=== PATIENT | female | born 2000 | race Caucasian/White ===

== ENCOUNTER 2020-06-18 10:52 | Emergency (ER) | payer OTHER ==
[~2020-06-18] VITALS: Ht 162.6 cm; Wt 77.2 kg
--- NOTE | 2020-06-18 11:14 | PHYS DOC ---
General Adult EDM: Chief Complaint: UPPER EXTREMITY PAIN HPI: HPI: 19-year-old [id number] female who presents for evaluation of ongoing pain of the left wrist in the setting of distal left radius fracture status post mechanical fall and FOOSH injury yesterday. Was seen at urgent care yesterday, placed in a splint. Did not undergo hematoma block or reduction. She was seen at [place] prior to arrival due to ongoing pain, now with some tingling of the fingertips and swelling of all digits. Review of Systems: Review of Systems: Gen: No fever, chills. Neuro: No DE LEON, dizziness, weakness. Reports left fingertip tingling. MSK: Reports left wrist pain swelling. Skin: No acute rash or lesion. Remainder of systems reviewed and negative unless otherwise specified. Allergies: Allergies: Allergies Coded Allergies Type Severity Reaction Last Updated Verified No Known Drug Allergies 06/18/20 No Physical Exam: PE: Gen: NAD. Well nourished. Head: NC/AT. Eyes: No scleral icterus. No conjunctival injection. ENT: MMM. Posterior OP clear. Neck: Supple. CV: RRR. Peripheral pulses intact. Resp: CTAB. MSK: No peripheral cyanosis. Swelling of all digits of the left hand. Nonfocal tenderness of the left wrist with passive active range of motion of the left digits. Previously applied left sugar tong splint in place. Neuro: A&Ox3. Strength & sensation grossly intact throughout. Skin. Warm. Dry. Psych: Appropriate mood & affect. EKG: EKG: [] Radiology/Procedures: Radiology/Procedures: [] Heart Score: C/O Chest Pain: N/A Risk Factors: Risk Factors: DM, Current or recent (<one month) smoker, HTN, HLP, family history of CAD, obesity. Risk Scores: Score 0 - 3: 2.5% MACE over next 6 weeks - Discharge Home Score 4 - 6: 20.3% MACE over next 6 weeks - Admit for Clinical Observation Score 7 - 10: 72.7% MACE over next 6 weeks - Early Invasive Strategies Course & Med Decision Making: Course & Med Decision Making Pertinent Labs and Imaging studies reviewed. (See chart for details) In summary, lasts 19-year-old bejmv-prra-crwdruyu female who presents with ongoing left wrist pain and finger swelling in the setting of distal left radial fracture identified yesterday urgent care. The patient's splint appears to be on quite tight. X-ray here shows nondisplaced distal left radial fracture. The patient's splint was removed and redone. Distal capillary refill present. No findings c/w compartment syndrome. We discharged home with outpatient orthopedic follow-up. Return precautions given. Tez Disclaimer: Dragliliana Disclaimer: This electronic medical record was generated, in whole or in part, using a voice recognition dictation system. Departure Departure: Impression: Primary Impression: Distal radius fracture, left Disposition: 01 DC HOME SELF CARE/HOMELESS Condition: STABLE Referrals: BESS VALENCIA DO (PCP) LARRY MCCULLOUGH II, MD Patient Instructions: Wrist Fracture, [id number] Additional Instructions: Follow up with the orthopedic surgeon. Scripts Hydrocodone Bit/Acetaminophen (HYDROCODONE-APAP 5-325 ) 1 Each Tablet 1 TAB PO PRN Q6HRS PRN for PAIN, #15 TAB 0 Refills Prov: ADELINA NOVA DO 06/18/20 ADELINA NOVA DO Jun 18, 2020 11:14
[2020-06-18] MEDS ORDERED: HYDROcodone/APAP 5/325MG 1 TAB TABLET PO ONE (11:15)
[2020-06-18] MEDS ORDERED: HYDR-2155 PO (12:01)
[2020-06-18 12:09] VITALS: BP 132/73
--- NOTE | 2020-06-18 12:14 | RAD ---
Left wrist 3 views INDICATION: Distal radius fracture with worsening pain COMPARISON: None currently available. FINDINGS: Closed reduction and casting of the distal radial intra-articular fracture of the metaphysis is seen with near anatomic alignment. No additional fractures are seen with artifact of casting material pres ent. The soft tissues are unremarkable allowing for mild soft tissue swelling. IMPRESSION: Intra-articular fracture of the distal radius with near-anatomic alignment. No specific cause for worsening wrist pain is seen. Correlation with prior radiographs could be helpf ul. Electronically signed by: Gail Truong MD (06/18/2020 12:11 PM) [id number]
== END 2020-06-18 12:10 | disposition home or self-care (01) ==
LOC: ER 10:52
DX: S52.502A Unspecified fracture of the lower end of left radius, initial encounter for closed fracture (principal); W18.39XA Other fall on same level, initial encounter; Y93.89 Activity, other specified; Y92.89 Other specified places as the place of occurrence of the external cause; Y99.8 Other external cause status
CPT/HCPCS: 73110; 99283

== ENCOUNTER 2020-06-25 11:16 | Emergency (ER) | payer OTHER ==
[~2020-06-25] VITALS: Ht 162.6 cm; Wt 77.2 kg
[~2020-06-25 11:16] MED LIST: HYDR-2155 PO
[2020-06-25 11:31] VITALS: BP 151/66
[2020-06-25] MEDS ORDERED: IBUPROFEN 600 MG TABLET. PO ONE (12:00)
[2020-06-25] MEDS ORDERED: DEXAMETHASONE SOD PHOS 10 MG/ML VIAL. IM ONE (12:00)
[2020-06-25] MEDS ORDERED: AMOX1TAB61 PO (12:14)
--- NOTE | 2020-06-25 12:15 | PHYS DOC ---
Past History Past Medical History: No Pertinent History Past Surgical History: No Surgical History Alcohol Use: None Adult General Chief Complaint Chief Complaint: SORE THROAT HPI HPI Patient is a 19-year-old female presents emergency department complaining of sore throat that started last night. Patient states that she woke up at 5 AM and noticed a fever of 100.0 oral temp. Patient states she did not take any medications for her sore throat or her fever however currently takes 5/325 hydrocodone/acetaminophen for a left wrist fracture she suffered last week, currently is wearing a OCL splint volar type to the left wrist, has an appointment to see Dr. Ferrer at the [facility] this coming . Patient states she has recurrent strep throat infections, has them several times a year, states she is usually treated with steroids and penicillin by the [facility] she was at in [facility], states she recently moved here to this area [facility] this past month. Patient denies ear pain, nasal congestion, chest congestion, cough, shortness of breath, or chest pain. Patient denies nausea, vomiting, diarrhea or abdominal pains. Patient states her last menstrual cycle was 3 weeks ago with normal duration of flow. Patient denies any surgical history, denies any medical history in which she takes prescription medications for. She denies any allergies to medications. Patient complains of 8/10 pain of her throat. Review of Systems Review of Systems 14 body systems of review of systems have been reviewed. See HPI for pertinent positives and negative responses, otherwise all other systems are negative, nonpertinent or noncontributory. Current Medications Current Medications Current Medications Medications (Trade) Dose Ordered Sig/Galilea Start Time Stop Time Status Last Admin Dose Admin Dexamethasone Sodium Phosphate (Decadron) 10 mg 1X ONCE 06/25/20 12:00 06/25/20 12:01 UNV Ibuprofen (Motrin) 600 mg 1X ONCE 06/25/20 12:00 06/25/20 12:01 UNV Allergies Allergies Allergies Coded Allergies Type Severity Reaction Last Updated Verified No Known Drug Allergies 06/18/20 No Physical Exam Physical Exam Constitutional: Well developed, well nourished, no acute distress, non-toxic appearance. 19-year-old female in no apparent distress, speaks in normal voice tones. HENT: Normocephalic, atraumatic, bilateral external ears normal, oropharynx moist, no oral exudates, nose normal. Bilateral tonsillar swelling with edema with cobblestoning, no tonsillar exudates, no postnasal drip appreciated, no laryngeal swelling, airway patent, no sores in the oral cavity, bilateral submental lymphadenopathy, no other lymphadenopathy of the head or neck appreciated, bilateral TMs within normal limits, bilateral external auditory c anals within normal limits. No drooling, no trismus appreciated. Eyes: PERRLA, EOMI, conjunctiva normal, no discharge. Neck: Normal range of motion, no tenderness, supple, no stridor. No midline spinal tenderness, no meningismus signs, no nuchal rigidity appreciated. Cardiovascular:Heart rate regular rhythm, no murmur Lungs & Thorax: Bilateral breath sounds clear to auscultation Abdomen: Bowel sounds normal, soft, no tenderness, no masses, no pulsatile masses. Skin: Warm, dry, no erythema, no rash. Back: No tenderness, no CVA tenderness. Extremities: No tenderness, no cyanosis, no clubbing, ROM intact, no edema. Except for left upper extremity, patient has volar type OCL splint placed. Both OCL splint and [place] wrapping sustained and dirty, distal cap refill less than 2 seconds, patient moves fingers well, no swelling appreciated. Neurologic: Alert and oriented X 3, normal motor function, normal sensory function, no focal deficits noted. Psychologic: Affect normal, judgement normal, mood normal. Current Patient Data Vital Signs Vital Signs Date Time Temp Pulse Resp B/P (MAP) Pulse Ox O2 Delivery O2 Flow Rate FiO2 06/25/20 11:31 98.9 89 16 151/66 (94) 100 Room Air Lab Results Laboratory Tests Test 06/25/20 11:38 Group A Streptococcus Rapid Negative (NEGATIVE) EKG EKG [] Radiology/Procedures Radiology/Procedures [] Heart Score C/O Chest Pain: No Risk Factors: Risk Factors: DM, Current or recent (<one month) smoker, HTN, HLP, family history of CAD, obesity. Risk Scores: Risk Factors: DM, Current or recent (<one month) smoker, HTN, HLP, family history of CAD, obesity. Course & Med Decision Making Course & Med Decision Making Pertinent Labs and Imaging studies reviewed. (See chart for details) 19-year-old female, vital signs reviewed, presents emergency department concerning a sore throat. Physical examination consistent with strep pharyngitis. A strep culture was obtained by ED nursing staff. Patient was given 600 mg ibuprofen suspension for pain, 10 mg IM Decadron. Pending rapid strep A results. Related to patient's left upper extremity volar OCL splint and poor condition, will replace splint in the ED today. Patient has an appointment in 2 days with orthopedic specialty. Rapid strep A results negative. Discussed with patient will treat prophylactically with Augmentin. Discussed with patient to keep splint clean and dry, keep appointment with orthopedic specialty in 2 days, follow-up with [facility] primary care physician for reevaluation of sore throat later this week. Left wrist volar OCL splint replaced by ED nursing staff, reevaluation of splint show satisfactory placement, patient remains neurovascular intact after splint placement. Patient gave verbal understanding of discharge home instructions, antibiotic use, continue use of hydrocodone for her wrist pain, follow-up with orthopedic specialty in 2 days, reviewed splint care instructions, follow-up with primary care later this week. Patient had no further questions or concerns and was discharged home without incident. Dragon Disclaimer Dragon Disclaimer This electronic medical record was generated, in whole or in part, using a voice recognition dictation system. Departure Departure: Impression: Primary Impression: Pharyngitis, acute Additional Impression: Left wrist fracture Disposition: 01 DC HOME SELF CARE/HOMELESS Condition: GOOD Referrals: BESS VALENCIA DO (PCP) Patient Instructions: Cast or Splint Care, Elastic Bandage and RICE, Strep Throat Additional Instructions: You are seen today in the emergency department for a sore throat, I am treating you with antibiotics for pharyngitis, we have replaced your splint on your left wrist, please review splint care, please keep your appointment with your orthopedic physician this coming , please follow-up with the [facility] primary care doctor later this week for reevaluation of your sore throat. Please return to the emergency department for worsening symptoms or other concerns. I recommend using children's ibuprofen liquid medication for your sore throat over the next few days. EMERGENCY DEPARTMENT GENERAL DISCHARGE INSTRUCTIONS Thank you for coming to [facility] (ED) today and trusting us with you care. We trust that you had a positivie experience in our Emergency Department. If you wish to speak to the department management, you may call the director at [phone]. YOUR FOLLOW UP INSTRUCTIONS ARE FOLLOWS: 1. Do you have a private Doctor? If you do not have a private doctor, please ask for a resource list of physicians or clinics that may be able to assist you with follow up care. 2. The Emergency Physician has interpreted your x-rays. The X-Ray specialist will also review them. If there is a change in the findings, you will be notified in 48 hours when at all possible. 3. A lab test or culture has been done, your results will be reviewed and you will be notified if you need a change in treatment. ADDITIONAL INSTRUCTIONS AND INFORMATION: 1. Your care today has been supervised by a physician who is specially trained in emergency care. Many problems require more than one evaluation for a complete diagnosis and treatment. We recommend that you schedule your follow up appointment as recommended to ensure complete treatment of you illness or injury. If you are unable to obtain follow up care and continue to have a problem, or if your condition worsens, we recommend that you return to the ED. 2. We are not able to safely determine your condition over the phone nor are we able to give sound medical advice over the phone. For these safety reasons, if you call for medical advice we will ask you to come to the ED for further evaluation. 3. If you have any questions regarding these discharge instructions please call the ED at [phone]. SAFETY INFORMATION: In the interest of safety, wellness, and injury prevention; we encourage you to wear your sealbelt, if you smoke; quite smoking, and we encourage family to use a protective helmet for bicycling and other sporting events that present an increased risk for head injury. IF YOUR SYMPTOMS WORSEN OR NEW SYMPTOMS DEVELOP, OR YOU HAVE CONCERNS ABOUT YOUR CONDITION; OR IF YOUR CONDITION WORSENS WHILE YOU ARE WAITING FOR YOUR FOLLOW UP APPOINTM ENT; EITHER CONTACT YOUR PRIMARY CARE DOCTOR, THE PHYSICIAN WHOSE NAME AND NUMBER YOU WERE GIVEN, OR RETURN TO THE ED IMMEDIATELY. Scripts Amoxicillin/Potassium Clav (AUGMENTIN 875-125 TABLET) 1 Each Tablet 1 TAB PO BID for PHARYNGITIS for 10 Days, #20 TAB 0 Refills Prov: PADMA RAZA APRN 06/25/20 Problem Qualifiers Primary Impression: Pharyngitis, acute Pharyngitis/tonsillitis etiology: other specified organisms Qualified Codes: J02.8 - Acute pharyngitis due to other specified organisms Additional Impression: Left wrist fracture Encounter type: subsequent encounter Fracture type: closed Fracture healing: with routine healing Qualified Codes: S62.102D - Fracture of unspecified carpal bone, left wrist, subsequent encounter for fracture with routine healing PADMA RAZA APRN Jun 25, 2020 12:15
== END 2020-06-25 12:36 | disposition home or self-care (01) ==
LOC: ER 11:16
DX: S62.102A Fracture of unspecified carpal bone, left wrist, initial encounter for closed fracture (principal); J02.9 Acute pharyngitis, unspecified; X58.XXXA Exposure to other specified factors, initial encounter; Y93.89 Activity, other specified; Y92.89 Other specified places as the place of occurrence of the external cause; Y99.8 Other external cause status
CPT/HCPCS: 29125; 87070; 87147; 87880; 96372; 99283; J1100

== ENCOUNTER 2021-01-15 08:26 | Emergency (ER) | payer OTHER ==
[~2021-01-15] VITALS: Ht 162.6 cm; Wt 83.7 kg
[~2021-01-15 08:26] MED LIST changes: +AMOX1TAB61 PO
[2021-01-15 08:32] VITALS: BP 123/61
[2021-01-15] MEDS ORDERED: IV NORMAL SALINE 1,000ML 1,000 ML IV ONE (08:45)
--- NOTE | 2021-01-15 09:03 | PHYS DOC ---
Past History Past Medical History: No Pertinent History Past Surgical History: No Surgical History Alcohol Use: Occasionally General Adult EDM: Chief Complaint: ABDOMINAL PAIN HPI: HPI: 20-year-old female presents with right lower quadrant abdominal pain. The patient has felt like she has a ball in the right lower quadrant for the last 7 days or so. The pain is mild but increases in intensity to moderate. It is a sharp sensation but never goes away. She has had increased urinary frequency lately but no dysuria or hematuria. She denies change in bowel habits. She has had irregular menstrual cycle for the last 2 months, but she is due to have her Implanon replaced in 2 weeks. Denies fever or chills. Review of Systems: Review of Systems: Constitutional: Denies fever or chills Eyes: Denies change in visual acuity HENT: Denies nasal congestion or sore throat Respiratory: Denies cough or shortness of breath Cardiovascular: Denies chest pain or edema GI: RLQ abdominal pain. Denies nausea, vomiting, bloody stools or diarrhea : Increased urinary frequency, irregular intermenstrual bleeding. Musculoskeletal: Denies back pain or joint pain Integument: Denies rash Neurologic: Denies headache, focal weakness or sensory changes Endocrine: Denies polyuria or polydipsia Lymphatic: Denies swollen glands Psychiatric: Denies depression or anxiety Current Medications: Current Meds: Current Medications Medications (Trade) Dose Ordered Sig/Galilea Start Time Stop Time Status Last Admin Dose Admin Sodium Chloride 1,000 ml @ 1,000 mls/hr 1X ONCE 01/15/21 08:45 01/15/21 09:44 Allergies: Allergies: Allergies Coded Allergies Type Severity Reaction Last Updated Verified No Known Drug Allergies 06/18/20 No Physical Exam: PE: Constitutional: Well developed, well nourished, no acute distress, obese, non- toxic appearance. [] HENT: Normocephalic, atraumatic, bilateral external ears normal, oropharynx moist, no oral exudates, nose normal. [] Eyes: PERRLA, EOMI, conjunctiva normal, no discharge. [] Neck: Normal range of motion, no tenderness, supple, no stridor. [] Cardiovascular: Heart rate regular rhythm, no murmur [] Lungs & Thorax: Bilateral breath sounds clear to auscultation [] Abdomen: Bowel sounds normal, soft, mild right lower quadrant tenderness, no masses, no pulsatile masses. [] Skin: Warm, dry, no erythema, no rash. [] Back: No tenderness, no CVA tenderness. [] Extremities: No tenderness, no cyanosis, no clubbing, ROM intact, no edema. [] Neurologic: Alert and oriented X 3, normal motor function, normal sensory function, no focal deficits noted. [] Psychologic: Affect normal, judgement normal, mood normal. [] Current Patient Data: Vital Signs: Vital Signs Date Time Temp Pulse Resp B/P (MAP) Pulse Ox O2 Delivery O2 Flow Rate FiO2 01/15/21 08:32 97.5 112 18 123/61 (81) 98 Room Air EKG: EKG: [] Radiology/Procedures: Radiology/Procedures: [] Impressions: EXAM: Abdomen and pelvis CT with intravenous contrast. HISTORY: Right lower quadrant pain. TECHNIQUE: Computed tomographic images of the abdomen and pelvis were obtained following the administration of intravenous contrast. Multiplanar reformatting was performed. *One or more of the following individualized dose reduction techniques were utilized for this examination: 1. Automated exposure control. 2. Adjustment of the mA and/or kV according to patient size. 3. Use of iterative reconstruction technique. COMPARISON: None. FINDINGS: Evaluation of the lower thorax is unremarkable. No hepatic lesion is seen. The gallbladder, pancreas, stomach, adrenal glands and kidneys are unremarkable. There is a small splenule inferior to an otherwise unremarkable spleen. There is no evidence of appendicitis. There is no bowel obstruction. There is no abnormal bowel wall thickening. The bladder is nearly empty. There is a 7.1 cm simple appearing right adnexal cyst, likely ovarian in etiology. There is a small amount of pelvic free fluid. The aorta is normal in caliber. There is no lymphadenopathy. There is lumbar hyperlordosis. There is a transitional lumbosacral segment, a normal variant. IMPRESSION: 1. 7.1 cm simple appearing right adnexal cyst, likely ovarian in etiology. There is a small amount of adjacent pelvic free fluid. Given a history of right lower quadrant pain, this can be better characterized with a pelvic sonogram. 2. Normal-appearing appendix. Electronically signed by: Deisi Matthews MD (01/15/2021 10:56 AM) [id number] DICTATED AND SIGNED BY: DEISI MATTHEWS MD DATE: 01/15/21 1053 CC: ADRIAN DOW DO; BESS VALENCIA DO ~MTH0 0 INDICATION: Reason: cyst on CT, rule out torsion / Spl. Instructions: / History: COMPARISON: CT from same day TECHNIQUE: Grayscale and color ultrasound images uterus and adnexa. FINDINGS: Uterus: 86 x 48 x 42 mm. 14 mm endometrial stripe Right Ovary: 85 x 60 x 59 mm. Left Ovary: 35 x 26 x 15 mm. Vascular flow identified to bilateral ovaries. 60 x 69 x 54 mm right adnexal cyst. IMPRESSION: * Right adnexal cyst is identified. There is some adjacent tissue with vascular flow which could be from compressed ovarian tissue with vascularity seen to it. There is also vascularity seen to the left ovary. Follow-up could be obtained at a different point in the menstrual cycle to ensure that there is appropriate regression of right adnexal cyst Electronically signed by: Dulce Cortez MD (01/15/2021 11:30 AM) DESKTOP- [id number] DICTATED AND SIGNED BY: DULCE CORTEZ MD DATE: 01/15/21 1126 CC: ADRIAN DOW DO; BESS VALECNIA DO ~MTH0 0 Heart Score: C/O Chest Pain: N/A Risk Factors: Risk Factors: DM, Current or recent (<one month) smoker, HTN, HLP, family history of CAD, obesity. Risk Scores: Score 0 - 3: 2.5% MACE over next 6 weeks - Discharge Home Score 4 - 6: 20.3% MACE over next 6 weeks - Admit for Clinical Observation Score 7 - 10: 72.7% MACE over next 6 weeks - Early Invasive Strategies Course & Med Decision Making: Course & Med Decision Making Pertinent Labs and Imaging studies reviewed. (See chart for details) The patient CT scan did show a right adnexal mass, likely a cyst of 7.1 cm. Ultrasound confirmed similar findings. I believe this is likely patient's sour ce of discomfort. Urinalysis is negative for infection. She does have a white count of 18 with left shift. I have no previous for comparison. I discussed this finding with the patient. I do not have a source for infection and she does not have concern for STD. She has agreed to 1 g Rocephin IV and doxycycline prescription in case this is an infectious source. She is stable f or discharge at this time. No PT running or ACFT test until cleared by OB. [] Tez Disclaimer: Tez Disclaimer: This electronic medical record was generated, in whole or in part, using a voice recognition dictation system. Departure Departure: Impression: Primary Impression: Right ovarian cyst Disposition: HOME / SELF CARE / HOMELESS Condition: STABLE Referrals: BESS VALENCIA DO (PCP) Patient Instructions: Ovarian Cyst, [id number] Scripts Doxycycline Hyclate (DOXYCYCLINE HYCLATE) 100 Mg Tablet 1 TAB PO BID for antibiotic, #14 TAB Prov: ADRIAN DOW DO 01/15/21 ADRIAN DOW DO Jan 15, 2021 09:03
[2021-01-15] MEDS ORDERED: CONTRAST GIVEN. MC PRN (09:15)
[2021-01-15] MEDS ORDERED: IOHEXOL 300 MG/ML 75 ML VIAL. IV ONE (09:15)
[2021-01-15 09:23] LABS: BASO % 0 % (0-3); EOS # 0.1 x10^3/uL (0.0-0.7); EOS % 1 % (0-3); HEMATOCRIT 39.3 % (36.0-47.0); HEMOGLOBIN 13.2 g/dL (12.0-15.5); LYMPH # 1.5 x10^3/uL (1.0-4.8); LYMPH % 8 % (24-48); MEAN CORPUSCULAR HEMOGLOBIN 30 pg (25-35); MEAN CORPUSCULAR HGB CONC 34 g/dL (31-37); MEAN CORPUSCULAR VOLUME 89 fL (79-100); MONO # 1.3 x10^3/uL (0.0-1.1); MONO % 7 % (0-9); NEUT # 15.2 x10^3uL (1.8-7.7); NEUT % 84 % (31-73); PLATELET COUNT 281 x10^3/uL (140-400); RED CELL DISTRIBUTION WIDTH 12.9 % (11.5-14.5); WHITE BLOOD COUNT 18.1 x10^3/uL (4.0-11.0)
[2021-01-15 09:30] LABS: CALCIUM 9.4 mg/dL (8.5-10.1); CREATININE 0.8 mg/dL (0.6-1.0); GFR 90.5; POTASSIUM 3.7 mmol/L (3.5-5.1)
[2021-01-15 09:36] LABS: ALBUMIN 4.3 g/dL (3.4-5.0); ALBUMIN/GLOBULIN RATIO 1.1 (1.0-1.7); TOTAL BILIRUBIN 0.3 mg/dL (0.2-1.0); TOTAL PROTEIN 8.1 g/dL (6.4-8.2)
[2021-01-15 09:51] LABS: % ATYL 4 % (0-0); % BANDS 11 % (0-9); % BASOS 1 % (0-3); % LYMPHS 11 % (24-48); % MONOS 2 % (0-10); % SEGS 71 % (35-66)
[2021-01-15 09:54] LABS: PLT ESTIMATE ADEQUATE (ADEQUATE)
[2021-01-15 10:38] LABS: BACTERIA,URINE 0 /HPF (0-FEW); BILIRUBIN,URINE NEG (NEG); CLARITY,URINE HAZY; COLOR,URINE YELLOW; GLUCOSE,URINE NEG (NEG); NITRITE,URINE NEG (NEG); SQUAMOUS EPITHELIAL CELL,UR MANY /LPF; UROBILINOGEN,URINE 0.2 mg/dL (0.2 mg/dL)
--- NOTE | 2021-01-15 10:58 | RAD ---
EXAM: Abdomen and pelvis CT with intravenous contrast. HISTORY: Right lower quadrant pain. TECHNIQUE: Computed tomographic images of the abdomen and pelvis were obtained following the administ ration of intravenous contrast. Multiplanar reformatting was performed. *One or more of the following individualized dose reduction techniques were utilized for this examina tion: 1. Automated exposure control. 2. Adjustment of the mA and/or kV according to patient size. 3. Use of iterative reconstruction technique. COMPARISON: None. FINDINGS: Evaluation of the lower thorax is unremarkable. No hepatic lesion is seen. The gallbladder, pancreas, stomach, adrenal glands and kidneys are unremarkable. There is a small splenule inferior t o an otherwise unremarkable spleen. There is no evidence of appendicitis. There is no bowel obstructi on. There is no abnormal bowel wall thickening. The bladder is nearly empty. There is a 7.1 cm simple appearing right adnexal cyst, likely ovarian in etiology. There is a small amount of pelvic free flu id. The aorta is normal in caliber. There is no lymphadenopathy. There is lumbar hyperlordosis. There is a transitional lumbosacral segment, a normal variant. IMPRESSION: 1. 7.1 cm simple appearing right adnexal cyst, likely ovarian in etiology. There is a small amount of adjacent pelvic free fluid. Given a history of right lower quadrant pain, this can be better charact erized with a pelvic sonogram. 2. Normal-appearing appendix. Electronically signed by: Deisi Day MD (01/15/2021 10:56 AM) [id number]
--- NOTE | 2021-01-15 11:32 | RAD ---
INDICATION: Reason: cyst on CT, rule out torsion / Spl. Instructions: / History: COMPARISON: CT from same day TECHNIQUE: Grayscale and color ultrasound images uterus and adnexa. FINDINGS: Uterus: 86 x 48 x 42 mm. 14 mm endometrial stripe Right Ovary: 85 x 60 x 59 mm. Left Ovary: 35 x 26 x 15 mm. Vascular flow identified to bilateral ovaries. 60 x 69 x 54 mm right adnexal cyst. IMPRESSION: * Right adnexal cyst is identified. There is some adjacent tissue with vascular flow which could be from compressed ovarian tissue with vascularity seen to it. There is also vascularity seen to the le ft ovary. Follow-up could be obtained at a different point in the menstrual cycle to ensure that ther e is appropriate regression of right adnexal cyst Electronically signed by: Marcio Grimaldo MD (01/15/2021 11:30 AM) [id number]
[2021-01-15] MEDS ORDERED: DOXY100T PO (12:03)
== END 2021-01-15 12:16 | disposition home or self-care (01) ==
LOC: ER 08:26
DX: N83.201 Unspecified ovarian cyst, right side (principal)
CPT/HCPCS: 36415; 74177; 76856; 80053; 81001; 81025; 85007; 85025; 99285; J7030; Q9967

== ENCOUNTER → 2021-02-05 | Outpatient (CLI) | payer OTHER ==
[2021-01-15 08:32] VITALS: BP 123/61
[~2021-02-05] MED LIST changes: +DOXY100T PO; +IOHEXOL 300 MG/ML 75 ML VIAL. IV ONE
--- NOTE | 2021-02-05 08:37 | RAD ---
EXAM: Abdomen and pelvis CT with and without intravenous contrast. HISTORY: Ovarian cyst. TECHNIQUE: Computed tomographic images of the abdomen and pelvis were obtained prior to and following the administration of intravenous contrast. Multiplanar reformatting was performed. *One or more of the following individualized dose reduction techniques were utilized for this examina tion: 1. Automated exposure control. 2. Adjustment of the mA and/or kV according to patient size. 3. Use of iterative reconstruction technique. COMPARISON: 01/15/2021. FINDINGS: Evaluation of the lower thorax demonstrates a 2 mm groundglass nodular opacity within the l ateral left lower lobe, benign in appearance. There is no suspicious nodule. There is no pleural effu rosana or pneumothorax. There is no infiltrate. The heart is normal in size. No hepatic lesion is seen. The gallbladder, pancreas, and stomach are unremarkable. There is a splenu le adjacent to an otherwise unremarkable spleen. There is no nephroureterolithiasis or suspicious caitlin al lesion. There is no appendicitis. There is no bowel obstruction. There is no abnormal bowel wall thickening. The urinary bladder is unremarkable. There is a suspected mildly arcuate uterine configuration. There are multiple bilateral ovarian follicles. There is a 4.3 cm right adnexal cyst, likely ovarian in et iology. There is trace pelvic free fluid. The aorta is normal in caliber. There is no lymphadenopathy. There is no suspicious osseous lesion. T here is lumbar hyperlordosis. There is a transitional lumbosacral segment, the left aspect of which a rticulates with the underlying sacrum. This is a normal variant. IMPRESSION: 1. Decreased size of a 4.3 cm right adnexal cyst, likely ovarian in etiology. This previously measure d 7.1 cm. The interval decrease in size over a three-week interval favors benignity. Follow-up with a pelvic sonogram in approximately 2-3 months can be performed to confirm complete resolution. 2. Suspected mildly arcuate uterus. Electronically signed by: Deisi Day MD (02/05/2021 8:35 AM) [id number]
== END ==
LOC: CT 07:39
PROVIDERS: ATTEND Family Medicine
DX: N83.209 Unspecified ovarian cyst, unspecified side (principal)
CPT/HCPCS: 74178; Q9967

== ENCOUNTER 2021-05-14 18:50 | Emergency (ER) | payer OTHER ==
[~2021-05-14] VITALS: Ht 162.6 cm; Wt 83.7 kg
[~2021-05-14 18:50] MED LIST changes: -IOHEXOL 300 MG/ML 75 ML VIAL. IV ONE
--- NOTE | 2021-05-14 19:27 | PHYS DOC ---
Past History Past Medical History: No Pertinent History Past Surgical History: No Surgical History Alcohol Use: Occasionally Adult General HPI HPI Patient is a 20-year-old female who presents with with lower extremity pain. States that she has had a small bump behind her right knee for the last few days that feels heavy, caused some discomfort, 5 out of 10 dull and achy in nature. Denies any recent travels, traumas, illnesses, fevers, chest pain, shortness of breath, abdominal pain, nausea, vomiting. States he never had anything like this before. Denies any numbness/weakness/tingling. Able to sit, stand or walk without issue. Has not taken any medications. Has not seen her primary care physician. Review of Systems Review of Systems Review of systems otherwise unremarkable except noted in HPI Allergies Allergies Allergies Coded Allergies Type Severity Reaction Last Updated Verified No Known Drug Allergies 06/18/20 No Physical Exam Physical Exam Constitutional: Well developed, well nourished, no acute distress, non-toxic appearance. [] HENT: Normocephalic, atraumatic, bilateral external ears normal, oropharynx moist, no oral exudates, nose normal. [] Eyes: conjunctiva normal, no discharge. [] Neck: Normal range of motion, no tenderness, supple, no stridor. [] Cardiovascular:Heart rate regular rhythm, no murmur [] Lungs & Thorax: Bilateral breath sounds clear to auscultation [] Abdomen: Bowel sounds normal, soft, no tenderness, no masses, no pulsatile masses. [] Skin: Warm, dry, no erythema, no rash. [] Back: No tenderness, no CVA tenderness. [] Extremities: No tenderness, no cyanosis, no clubbing, ROM intact, no edema. [] Neurologic: Alert and oriented X 3, normal motor function, normal sensory function, no focal deficits noted. [] Psychologic: Affect normal, judgement normal, mood normal. [] EKG EKG [] Radiology/Procedures Radiology/Procedures [] Heart Score C/O Chest Pain: No Risk Factors: Risk Factors: DM, Current or recent (<one month) smoker, HTN, HLP, family history of CAD, obesity. Risk Scores: Risk Factors: DM, Current or recent (<one month) smoker, HTN, HLP, family history of CAD, obesity. Course & Med Decision Making Course & Med Decision Making Patient is a 20-year-old female presents with lower extremity pain Vital signs not concerning. Physical exam noted above. POC ultrasound showed probable Dickson's cyst high on the differential Discussed pain management at home. 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 Gave return precautions to the ED. Patient grateful, verbalized understanding and agreed with plan of discharge. [] Dragon Disclaimer Dragon Disclaimer This electronic medical record was generated, in whole or in part, using a voice recognition dictation system. Departure Departure: Impression: Primary Impression: Dickson's cyst of knee Disposition: HOME / SELF CARE / HOMELESS Condition: GOOD Referrals: FAVIO BARFIELD DO (PCP) Patient Instructions: Dickson's Cyst Additional Instructions: Thank you for coming into the emergency department tonight and allowing us to take care of you. Please read the attached information carefully to go over things we discussed. He can use Tylenol, ibuprofen and ice as needed. Please follow-up in the morning with your primary care physician update on your ED visit and set up a follow-up for reevaluation and continue monitoring for your Dickson's cyst. Please come back with new or concerning symptoms as discussed DEMI THAO MD May 14, 2021 19:27
[2021-05-14 19:59] VITALS: BP 116/78
== END 2021-05-14 20:32 | disposition home or self-care (01) ==
LOC: ER 18:50
DX: M71.21 Synovial cyst of popliteal space [Baker], right knee (principal)
CPT/HCPCS: 99282

== ENCOUNTER 2021-05-29 08:34 | Emergency (ER) | payer OTHER ==
[~2021-05-29] VITALS: Ht 162.6 cm; Wt 87.9 kg
[2021-05-29] MEDS ORDERED: IV NORMAL SALINE 1,000ML 1,000 ML IV ONE (08:45)
[2021-05-29] MEDS ORDERED: ONDANSETRON PF 4 MG/2 ML VIAL. IVP ONE (08:45)
--- NOTE | 2021-05-29 08:57 | PHYS DOC ---
Past History Past Medical History: No Pertinent History Additional Past Medical Histor: torn mediscus right knee Past Surgical History: Other Additional Past Surgical Histo: WISDOM TEETH Alcohol Use: Occasionally General Adult EDM: Chief Complaint: MULTIPLE COMPLAINTS HPI: HPI: 20-year-old female presents with vomiting and headache. Patient started vomiting at 4 AM last night. She said several episodes. 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 She also has generalized body aches and headache. Her has been having similar symptoms recently. She has no other complaints at this time. Review of Systems: Review of Systems: Constitutional: Fever, body aches Eyes: Denies change in visual acuity HENT: Denies nasal congestion or sore throat Respiratory: Denies cough or shortness of breath Cardiovascular: Denies chest pain or edema GI: Generalized abdominal pain, nausea, vomiting. : Denies dysuria Musculoskeletal: Denies back pain or joint pain Integument: Denies rash Neurologic: Denies headache, focal weakness or sensory changes Endocrine: Denies polyuria or polydipsia Lymphatic: Denies swollen glands Psychiatric: Denies depression or anxiety Current Medications: Current Meds: Current Medications Medications (Trade) Dose Ordered Sig/Galilea Start Time Stop Time Status Last Admin Dose Admin Ondansetron HCl (Zofran) 4 mg 1X ONCE 05/29/21 08:45 05/29/21 08:46 UNV Sodium Chloride 1,000 ml @ 1,000 mls/hr 1X ONCE 05/29/21 08:45 05/29/21 09:44 UNV Allergies: Allergies: Allergies Coded Allergies Type Severity Reaction Last Updated Verified No Known Drug Allergies 05/29/21 No Physical Exam: PE: Constitutional: Well developed, well nourished, no acute distress, non-toxic appearance. [] HENT: Normocephalic, atraumatic, bilateral external ears normal, oropharynx moist, no oral exudates, nose normal. [] Eyes: PERRLA, EOMI, conjunctiva normal, no discharge. [] Neck: Normal range of motion, no tenderness, supple, no stridor. [] Cardiovascular: Heart rate regular rhythm, no murmur [] Lungs & Thorax: Bilateral breath sounds clear to auscultation [] Abdomen: Bowel sounds normal, soft, no tenderness, no masses, no pulsatile masses. [] Skin: Warm, dry, no erythema, no rash. [] Back: No tenderness, no CVA tenderness. [] Extremities: No tenderness, no cyanosis, no clubbing, ROM intact, no edema. [] Neurologic: Alert and oriented X 3, normal motor function, normal sensory function, no focal deficits noted. [] Psychologic: Affect normal, judgement normal, mood normal. [] Current Patient Data: Vital Signs: Vital Signs Date Time Temp Pulse Resp B/P (MAP) Pulse Ox O2 Delivery O2 Flow Rate FiO2 05/29/21 08:47 99.5 106 18 121/76 (91) 97 Room Air EKG: EKG: [] Radiology/Procedures: Radiology/Procedures: [] Heart Score: C/O Chest Pain: N/A Risk Factors: Risk Factors: DM, Current or recent (<one month) smoker, HTN, HLP, family history of CAD, obesity. Risk Scores: Score 0 - 3: 2.5% MACE over next 6 weeks - Discharge Home Score 4 - 6: 20.3% MACE over next 6 weeks - Admit for Clinical Observation Score 7 - 10: 72.7% MACE over next 6 weeks - Early Invasive Strategies Course & Med Decision Making: Course & Med Decision Making Pertinent Labs and Imaging studies reviewed. (See chart for details) I have ordered a liter normal saline, 30 mg of Toradol, 10 mg of Reglan, 25 mg of Benadryl, 4 milligrams of Zofran for the patient's headache and vomiting. The patient's labs are unremarkable. Her urinalysis is negative for infection. She is not . Her influenza and COVID tests are negative. This is likely viral GI illness. She has had no further vomiting since getting antiemetics. I will discharge her with Zofran. She is stable for discharge at this time. [] Dragon Disclaimer: Dragliliana Disclaimer: This electronic medical record was generated, in whole or in part, using a voice recognition dictation system. Departure Departure: Impression: Primary Impression: Viral syndrome Additional Impression: Headache Disposition: HOME / SELF CARE / HOMELESS Condition: STABLE Referrals: FAVIO BARFIELD DO (PCP) Patient Instructions: Viral Syndrome Scripts Ondansetron (ONDANSETRON ODT) 4 Mg Tab.rapdis 1 TAB PO PRN Q6-8HRS PRN for VOMITING, #16 TAB Prov: ADRIAN DOW DO 05/29/21 ADRIAN DOW DO May 29, 2021 08:57
[2021-05-29] MEDS ORDERED: METOCLOPRAMIDE HCL 10 MG/2 ML VIAL. IVP ONE (09:00)
[2021-05-29] MEDS ORDERED: KETOROLAC 30 MG/ML VIAL. IVP ONE (09:00)
[2021-05-29] MEDS ORDERED: diphenhydrAMINE 50 MG/ML VIAL IVP ONE (09:00)
[2021-05-29 09:34] LABS: BASO % 0 % (0-3); EOS # 0.1 x10^3/uL (0.0-0.7); EOS % 1 % (0-3); HEMATOCRIT 42.2 % (36.0-47.0); HEMOGLOBIN 14.5 g/dL (12.0-15.5); LYMPH # 0.3 x10^3/uL (1.0-4.8); LYMPH % 3 % (24-48); MEAN CORPUSCULAR HEMOGLOBIN 31 pg (25-35); MEAN CORPUSCULAR HGB CONC 34 g/dL (31-37); MEAN CORPUSCULAR VOLUME 90 fL (79-100); MONO # 0.6 x10^3/uL (0.0-1.1); MONO % 5 % (0-9); NEUT # 10.4 x10^3uL (1.8-7.7); NEUT % 91 % (31-73); PLATELET COUNT 279 x10^3/uL (140-400); RED CELL DISTRIBUTION WIDTH 12.3 % (11.5-14.5); WHITE BLOOD COUNT 11.4 x10^3/uL (4.0-11.0)
[2021-05-29 09:42] LABS: CREATININE 0.7 mg/dL (0.6-1.0); GFR 105.6; POTASSIUM 3.7 mmol/L (3.5-5.1)
[2021-05-29 09:46] LABS: BACTERIA,URINE FEW /HPF (0-FEW); CLARITY,URINE CLEAR; COLOR,URINE YELLOW; GLUCOSE,URINE NEG (NEG); NITRITE,URINE NEG (NEG); SQUAMOUS EPITHELIAL CELL,UR MANY /LPF; UROBILINOGEN,URINE 0.2 mg/dL (0.2 mg/dL); WBC,URINE OCC /HPF (0-4)
[2021-05-29 09:47] LABS: INFLUENZA A PATIENT NEGATIVE (NEGATIVE); INFLUENZA B PATIENT NEGATIVE (NEGATIVE)
[2021-05-29 09:47] LABS: ALBUMIN 4.3 g/dL (3.4-5.0); ALBUMIN/GLOBULIN RATIO 1.2 (1.0-1.7); TOTAL BILIRUBIN 0.8 mg/dL (0.2-1.0)
[2021-05-29] MEDS ORDERED: ONDA4TAB12 PO (10:01)
[2021-05-29 10:22] VITALS: BP 105/63
== END 2021-05-29 10:22 | disposition home or self-care (01) ==
LOC: ER 08:34
DX: B34.9 Viral infection, unspecified (principal); R51.9 Headache, unspecified; Z20.822 Contact with and (suspected) exposure to COVID-19
CPT/HCPCS: 36415; 80053; 81001; 81025; 85025; 87428; 96361; 96374; 96375; 99284; J1200; J1885; J2405; J2765; J7030